=== PATIENT | male | born 1970 | race Caucasian/White ===

== ENCOUNTER 2016-06-07 16:08 | Emergency (ER) | payer BC ==
[2016-06-07] MEDS ORDERED: Ketorolac Tromethamine 30 MG/ML VIAL ONE (16:58)
--- NOTE | 2016-06-07 17:03 | RAD ---
PORTABLE CHEST: History: Chest pain. FINDINGS: Lungs are clear. Vasculature is normal. Heart and mediastinum are unremarkable. IMPRESSION: No acute finding. POS: [facility]
[2016-06-07 17:41] LABS: #Basophils 0.1 thou/uL (0.0-0.2); #Eosinphils 0.3 thou/uL (0.0-0.7); #Monocytes 0.5 thou/uL (0.11-0.59); #Neutrophils 4.1 thou/uL (1.40-6.50); %Basophils 1.5 % (0.0-1.0); %Eosinophils 3.2 % (0.0-10.0); %Lymphocytes 37.5 % (21.0-51.0); %Monocytes 6.5 % (0.0-10.0); %Neutrophils 51.3 % (42.0-75.0); Hemoglobin 15.4 g/dL (14.0-18.0); Mean Corpuscular Hemoglobin 30.7 pg (27.0-31.0); Mean Corpuscular Volume 87.6 fl (80.0-94.0); Mean Platelet Volume 7.3 fL (7.4-10.4); Platelet Count 305 thou/uL (130-400); RBC Distribution Width 12.1 % (11.5-14.5); Red Blood Cell (RBC) Count 5.01 mill/uL (4.70-6.10)
[2016-06-07 17:44] LABS: ALT (SGPT) 30 U/L (0-55); AST (SGOT) 23 U/L (5-34); Albumin 4.3 g/dL (3.5-5.0); Alkaline Phosphatase 84 U/L (40-150); Anion Gap 18 mmol/L (10-20); BUN (Urea Nitrogen) 24 mg/dL (8.9-20.6); Bilirubin, Total 0.3 mg/dL (0.2-1.2); Calc. Creatinine Clearance 0 mL/min (70-130); Calcium 9.2 mg/dL (7.8-10.44); Carbon Dioxide 22 mmol/L (22-29); Chloride 104 mmol/L (98-107); Estimated GFR-MDRD 77; Globulin 2.9 g/dL (2.4-3.5); Glucose 145 mg/dL (70-105); Potassium 3.9 mmol/L (3.5-5.1); Protein, Total 7.2 g/dL (6.0-8.3); Sodium 140 mmol/L (136-145)
[2016-06-07] MEDS ORDERED: methylPREDNISolone Sod Succ/PF 125 MG/2 ML VIAL ONE (18:46)
[2016-06-07] MEDS ORDERED: diphenhydrAMINE HCl 50 MG/ML 1 ML VIAL ONE (18:46)
[2016-06-07] MEDS ORDERED: Dexamethasone 10 MG/ML VIAL ONE (18:46)
[2016-06-07] MEDS ORDERED: Morphine Sulfate 2 MG/ML SYRINGE ONE (18:46)
[2016-06-07] MEDS ORDERED: Ondansetron HCl/PF 4 MG/2 ML Vial ONE (18:46)
[2016-06-07] MEDS ORDERED: Acetaminophen/Codeine 30-300mg Tablet ONE (19:32)
== END 2016-06-07 19:40 | disposition home or self-care (01) ==
LOC: MADERS 16:08
DX: R07.89 Other chest pain (principal); K50.90 Crohn's disease, unspecified, without complications; Z79.891 Long term (current) use of opiate analgesic; Z79.899 Other long term (current) drug therapy
CPT/HCPCS: 36415; 71010; 80053; 84484; 85025; 93005; 96374; 96375; J1100; J1200; J1885; J2270; J2405; J2930

== ENCOUNTER 2018-05-05 16:35 | Emergency (ER) | payer BC, OTHER | END 2018-05-05 17:36 | disposition home or self-care (01) | LOC: MADERS 16:35 | DX: J06.9 Acute upper respiratory infection, unspecified (principal); R35.0 Frequency of micturition; I10 Essential (primary) hypertension; F17.200 Nicotine dependence, unspecified, uncomplicated; Z79.899 Other long term (current) drug therapy | CPT/HCPCS: 36415; 87081; 87430; 87804; 99283 ==

== ENCOUNTER 2019-07-19 15:52 | Emergency (ER) | payer BC, OTHER, SELFPAY ==
[2019-07-19] MEDS ORDERED: Sodium Chloride 0.9% 1,000 ML ONE (16:24)
[2019-07-19] MEDS ORDERED: Nitroglycerin 0.4 MG TAB 1 EACH ONE (16:24)
[2019-07-19] MEDS ORDERED: Metoclopramide HCl 10 MG/2 ML VIAL ONE (16:24)
[2019-07-19] MEDS ORDERED: Ketorolac Tromethamine 30 MG/ML VIAL ONE (16:24)
[2019-07-19] MEDS ORDERED: diphenhydrAMINE 50 MG/ML VIAL ONE (16:24)
[2019-07-19] MEDS ORDERED: Nitroglycerin 2% Ointment 1 INCH/1 GM Packet ONE ×2 (16:24→16:45)
[2019-07-19] MEDS ORDERED: Aspirin Chewable 81 MG TAB ONE (16:24)
[2019-07-19] MEDS ORDERED: Mag-Al Plus 1200 MG/1200 MG/120 MG/30 ML UDCUP ONE (16:25)
[2019-07-19] MEDS ORDERED: Lidocaine Viscous Sol 2% 15 ml UD Cup ONE (16:25)
--- NOTE | 2019-07-19 16:25 | RAD ---
PORTABLE CHEST ONE VIEW: 07/19/19 at 4:30 p.m. HISTORY: Chest pain. COMPARISON: 11/04/16. FINDINGS: The heart size is normal. The lungs are expanded without focal areas of consolidation, pneumothoraces , or pleural effusions. IMPRESSION: No radiographic evidence of acute cardiopulmonary process. POS: [facility]
[2019-07-19 16:29] LABS: #Basophils 0.1 thou/uL (0.0-0.2); #Lymphocytes 2.1 thou/uL (1.20-3.40); #Monocytes 0.5 thou/uL (0.11-0.59); #Neutrophils 4.8 thou/uL (1.40-6.50); %Basophils 1.3 % (0.0-1.0); %Eosinophils 0.3 % (0.0-10.0); %Lymphocytes 27.4 % (21.0-51.0); Hemoglobin 14.1 g/dL (14.0-18.0); Mean Corpuscular HGB CONC 31.7 g/dL (32.0-36.0); Mean Corpuscular Hemoglobin 29.1 pg (27.0-31.0); Mean Platelet Volume 6.1 fL (7.4-10.4); Platelet Count 323 thou/uL (130-400); RBC Distribution Width 12.2 % (11.5-14.5); Red Blood Cell (RBC) Count 4.83 mill/uL (4.70-6.10); White Blood Cell (WBC) Count 7.5 thou/uL (4.8-10.8)
[2019-07-19 16:39] LABS: ALT (SGPT) 16 U/L (8-55); AST (SGOT) 17 U/L (5-34); Albumin 4.4 g/dL (3.5-5.0); Alkaline Phosphatase 48 U/L (40-110); Anion Gap 13 mmol/L (10-20); BUN (Urea Nitrogen) 21 mg/dL (8.9-20.6); Bilirubin, Total 0.4 mg/dL (0.2-1.2); CK (CPK) 97 U/L (30-200); Calc. Creatinine Clearance 0 mL/min (70-130); Calcium 9.4 mg/dL (7.8-10.44); Carbon Dioxide 28 mmol/L (22-29); Chloride 105 mmol/L (98-107); Estimated GFR-MDRD 76; Globulin 2.8 g/dL (2.4-3.5); Glucose 69 mg/dL (70-105); Potassium 3.9 mmol/L (3.5-5.1); Protein, Total 7.2 g/dL (6.0-8.3); Sodium 142 mmol/L (136-145)
== END 2019-07-19 18:25 | disposition home or self-care (01) ==
LOC: MADERS 15:52
DX: R07.9 Chest pain, unspecified (principal); G43.909 Migraine, unspecified, not intractable, without status migrainosus; I10 Essential (primary) hypertension; K50.90 Crohn's disease, unspecified, without complications; Z87.891 Personal history of nicotine dependence; Z79.899 Other long term (current) drug therapy
CPT/HCPCS: 71045; 80053; 82550; 83690; 84484; 85025; 85379; 93005; 96361; 96374; 96375; J1200; J1885; J2765; J7050